=== PATIENT | female | born 1990 | race Caucasian/White ===

== ENCOUNTER 2017-04-20 20:33 | Emergency (ER) | payer OTHER ==
[~2017-04-20] VITALS: Ht 162.6 cm; Wt 118.4 kg
[~2017-04-20 20:33] MED LIST: LEVA1.2530 INH; METF1000 PO
[2017-04-20 21:08] VITALS: BP 133/82
--- NOTE | 2017-04-20 22:30 | NUR ---
PATIENT TO ER BED 3
--- NOTE | 2017-04-20 22:38 | NUR ---
PATIENT PRESENTS TO ED WITH VAG BLEEDING FOR A YEAR, WITH CRAMPING RADIATING TO HER LOWER BACK. PT STATES MED HX ASTH, HIGH CHOLESTEROL, DM . DENIES V/D; SKIN IS PINK/WARM/DRY; AAOX4 WITH EVEN AND STEADY GAIT; LUNGS CLEAR BL; HR EVEN AND REGULAR; PT DENIES ANY FEVER, CP, SOB, OR COUGH AT THIS TIME; PATIENT STATES PAIN OF 9/10 AT THIS TIME; VSS; PATIENT POSITIONED FOR COMFORT; HOB ELEVATED; BEDRAILS UP X2; BED DOWN. ER MD MADE AWARE OF PT STATUS.
--- NOTE | 2017-04-20 23:54 | NUR ---
DR MOFFETT AT BEDSIDE EVALUATING PATIENT.
[2017-04-21] MEDS ORDERED: MORPHINE SULFATE 4 MG/ML SYR IVP ONE
[2017-04-21 00:21] LABS: BASOPHILS # (AUTO) 0.3 K/uL (0.00-0.22); BASOPHILS % (AUTO) 3.1 % (0.0-2.0); EOSINOPHILS # (AUTO) 0.3 K/uL (0-0.4); HEMATOCRIT 45.2 % (36-48); HEMOGLOBIN 14.7 g/dL (12.0-16.0); LYMPHOCYTES # (AUTO) 3.7 K/uL (2.5-16.5); LYMPHOCYTES % (AUTO) 35.2 % (20.5-51.1); MEAN CORPUSCULAR HEMOGLOBIN 29 pg (27-31); MEAN CORPUSCULAR HGB CONC 33 g/dL (33-37); MEAN CORPUSCULAR VOLUME 87 fL (80-94); MONOCYTES # (AUTO) 0.4 K/uL (0.8-1.0); MONOCYTES % (AUTO) 4.2 % (1.7-9.3); NEUTROPHILS # (AUTO) 5.8 K/uL (1.8-7.7); NEUTROPHILS % (AUTO) 54.5 % (42.2-75.2); PLATELET COUNT (AUTO) 324 K/uL (140-450); RED BLOOD CELL COUNT(AUTO) 5.17 MIL/uL (4.20-5.40); RED CELL DISTRIBUTION WIDTH 12.2 % (11.6-13.7); WHITE BLOOD COUNT (AUTO) 10.5 K/uL (4.8-10.8)
[2017-04-21 00:24] LABS: APPEARANCE,URINE SL CLOUDY (CLEAR); BILIRUBIN,URINE NEGATIVE (NEGATIVE); BLOOD, URINE NEGATIVE (NEGATIVE); COLOR,URINE YELLOW (YELLOW); LEUKOCYTE ESTERASE ,URINE NEGATIVE (NEGATIVE); NITRITE, URINE NEGATIVE (NEGATIVE); PH,URINE 5.5 (5.0-9.0); PROTEIN,URINE NEGATIVE (NEGATIVE); UGLUCOSE 3+ (NEGATIVE); UROBILINOGEN,URINE 0.2 EU/dL (0.2 - 1)
[2017-04-21 00:38] LABS: BACTERIA,URINE FEW /HPF (None Seen); RBC,URINE NONE SEEN /HPF (0-5); SQUAMOUS EPITHELIAL CELL,UR 0-3 /LPF (0-3 (FEW)); URINE AMORPHOUS URATE 1+ /HPF (None Seen); WBC,URINE 0-3 /HPF (0-5)
[2017-04-21 00:40] LABS: PARTIAL THROMBOPLASTIN TIME 24.2 secs (22-35.6); PROTHROMBIN TIME 9.8 secs (10.8-13.4)
--- NOTE | 2017-04-21 00:40 | NUR ---
PT TAKEN OFF UNIT TO HAVE US DONE
--- NOTE | 2017-04-21 01:12 | NUR ---
PT BACK FROM [facility]
--- NOTE | 2017-04-21 02:58 | NUR ---
Female Resort Keeper accompanied female patient for Pelvic Exam. VAG SWAB SENT TO LAB
--- NOTE | 2017-04-21 03:40 | NUR ---
WENT MOUNT SENT TO LAB
--- NOTE | 2017-04-21 03:51 | NUR ---
PT APPEARS TO BE RESTING IN BED. NO SOB NOTED AT THIS TIME. WILL CONTINUE TO MONITOR.
[2017-04-21 04:34] VITALS: BP 126/60
--- NOTE | 2017-04-21 04:34 | NUR ---
Patient discharged with v/s stable. Written and verbal after care instructions given and explained. Patient alert, oriented and verbalized understanding of instructions. Ambulatory with steady gait. All questions addressed prior to discharge. ID band removed. Patient advised to follow up with PMD. Rx of TRAMADOL HYRDOCHLORIDE given. Patient educated on indication of medication including possible reaction and side effects. Opportunity to ask questions provided and answered.
== END 2017-04-21 04:34 | disposition home or self-care (01) ==
LOC: MED 20:33
CPT/HCPCS: 36415; 76830; 81001; 84702; 85025; 85610; 85730; 87210; 96374; 99285; J2270